=== PATIENT | female | born 1955 | race Caucasian/White ===

== ENCOUNTER → 2017-02-21 | Outpatient (CLI) | payer OTHER ==
[~2017-02-21] VITALS: Ht 165.1 cm; Wt 93.4 kg
[~2017-02-21] MED LIST: APIDRA SUBQ; ASPIR 8181 MG PO; BENAZEPRIL 10 M10 MG PO; BIOTIN5000 MCG PO; CENTRUM SILVER1 EAC4 PO; LEVOTHYROXIN0.112 M1 PO; SERTRALINE HCL50 MG PO; TOUJEO SOL300 UNIT/1 SUBQ; VITAMIN D32000 UNI1 PO
--- NOTE | ~2017-02-21 | CATHLAB ---
[facility] [employer] [address] INVASIVE PROCEDURE REPORT Name: LUIS ALBERTO LEES Room #: REG CL [facility]#: [id number] Admission: 02/21/17 Attend Phys: Josue Turcios MD Discharge: Date of : 57 Date of Service: 02/21/17 0834 Report #: [id number] THIS REPORT FOR: //name// CC: Gerald Keen Kamron DATE OF SERVICE: 02/21/2017 INDICATION: Dyspnea, abnormal nuclear stress test. Full risks, benefits and alternatives of cardiac catheterization were explained to the patient. All questions were answered. Informed consent was obtained. A Barbeau test was performed on the right radial artery. The right wrist area was prepped and draped in a sterile manner. Lidocaine was given subcutaneously. A 5-Divehi sheath was inserted into the right radial artery via a modified Seldinger technique. Nitroglycerin and verapamil was injected through the sheath. 5000 units of heparin was given through peripheral IV. CORONARY ANATOMY: The left main artery is a large caliber vessel, with no flow-limiting lesions. The LAD is a moderate sized caliber vessel, tapers down to a [id number] sized caliber in the distal segment. There were no flow-limiting lesions in the LAD. There is mild disease in the proximal segment of the LAD, 20%. There is a small first diagonal artery, with no flow-limiting lesions. The left circumflex artery is a moderate to large size caliber vessel, codominant. There were no flow-limiting lesions in the left circumflex artery. There were 3 obtuse marginal arteries, with no flow-limiting lesions. The RCA supplies a small PDA. There were no flow-limiting lesions in the RCA A left ventriculogram was performed in the DALTON projection, revealing normal LV systolic function. The ejection fraction is approximately 60%. The LVEDP is 20 mmHg. There is no gradient across the outflow tract. At the end of the procedure, the sheath was removed and Vasc band was applied for hemostasis. IMPRESSION: 1. Mild disease in the proximal LAD. 2. Codominant left circumflex system. [facility] [address] [place] [address] INVASIVE PROCEDURE REPORT Name: YOANALUIS ALBERTO XIONG Room #: REG [facility]#: [id number] Admission: 02/21/17 Attend Phys: Josue Turcios MD Discharge: Date of : 57 Date of Service: 02/21/17 0834 Report #: [id number] 3. Normal LV systolic function. 4. Recommend medical therapy. <ELECTRONICALLY SIGNED> By: Josue Turcios MD 02/23/17 0921 0834 1314 Josue Turcios MD /nt
--- NOTE | ~2017-02-21 | EKG ---
[place] [address] [employer] [place] [address] ELECTROCARDIOGRAM REPORT Name: LUIS ALBERTO LEES [facility] [id number] Admission: 02/21/17 Attend Phys: Josue Turcios MD Discharge: Date of : 57 Report #: [id number] THIS REPORT FOR: //name// [facility] Test Date: 2017-02-21 Test Time: 07:54:22 Pat Name: LUIS ALBERTO LEES Department: Room: Gender: F Violin Tutor: Erik KENNEDY : 1955 Requested By: Josue Turcios Order Number: [id number] MD: Yemi Avery Measurements Intervals [place] Rate: 55 P: 52 AR: 132 QRS: -18 QRSD: 93 T: 37 QT: 484 QTc: 463 Interpretive Statements Sinus rhythm Borderline left axis deviation No previous ECG available for comparison Electronically Signed On 02-21-2017 8:02:18 CDT by Yemi Avery [email or web address] <ELECTRONICALLY SIGNED> By: Yemi Avery MD, [facility] 02/21/17 0802 [id number] [id number] Yemi Avery MD, FACC /EPI
[2017-02-21 07:07] VITALS: BP 134/59
[2017-02-21 07:32] LABS: HEMATOCRIT 34.8 % (37.0-47.0); HEMOGLOBIN 11.7 gm/dL (12.0-15.0); MCHC 33.6 g/dL (28.0-37.0); MCV 77.4 fL (80.0-100.0); RBC 4.5 mil/uL (4.20-5.00); RDW 14.9 % (10.5-14.5)
[2017-02-21 07:45] LABS: CALCIUM 9.2 mg/dL (8.5-10.1); CREATININE 0.8 mg/dL (0.6-1.0); POTASSIUM 4.1 mmol/L (3.5-5.1)
== END ==
LOC: CATH 06:42
PROVIDERS: Internal Medicine Cardiovascular Disease
DX: R94.39 Abnormal result of other cardiovascular function study (principal); I10 Essential (primary) hypertension; E11.9 Type 2 diabetes mellitus without complications; E03.9 Hypothyroidism, unspecified; Z79.4 Long term (current) use of insulin

== ENCOUNTER → 2021-11-17 | Outpatient (CLI) | payer OTHER | LOC: SJCVCIMAG 10:10 | PROVIDERS: ATTEND Internal Medicine Cardiovascular Disease | DX: I11.0 Hypertensive heart disease with heart failure (principal); I25.10 Atherosclerotic heart disease of native coronary artery without angina pectoris ==